=== PATIENT | female | born 1975 | race Caucasian/White ===

== ENCOUNTER 2017-02-20 12:05 | Emergency (ER) | payer MEDICAID ==
[~2017-02-20] VITALS: Ht 170.2 cm; Wt 72.6 kg
[~2017-02-20 12:05] MED LIST: CARI-277 PO; CITA-30 PO; DICY10CA55; LEVE500T22 PO; LORA-653 PO; OXYC10TA44 PO; PERCOT PO; ZOLP-158 PO
[2017-02-20 12:55] VITALS: BP 118/59
== END 2017-02-20 15:56 | disposition left against medical advice (07) ==
LOC: ER 12:05
DX: R10.30 Lower abdominal pain, unspecified (principal); Z53.21 Procedure and treatment not carried out due to patient leaving prior to being seen by health care provider

== ENCOUNTER 2018-09-12 17:09 | Emergency (ER) | payer MEDICAID ==
[~2018-09-12] VITALS: Ht 170.2 cm; Wt 86.2 kg
[2018-09-12 20:51] VITALS: BP 156/98
[2018-09-12] MEDS: METHOCARBAMOL 500 MG TAB PO ONE (22:06)
[2018-09-12] MEDS: ACETAMINOPHEN 325 MG TAB PO ONE (22:06)
== END 2018-09-12 22:47 | disposition home or self-care (01) ==
LOC: ER 17:09
DX: M62.838 Other muscle spasm (principal); M54.2 Cervicalgia; M79.645 Pain in left finger(s); R42 Dizziness and giddiness; I10 Essential (primary) hypertension; F17.210 Nicotine dependence, cigarettes, uncomplicated; Z90.49 Acquired absence of other specified parts of digestive tract; Z98.51 Tubal ligation status; Z88.1 Allergy status to other antibiotic agents; Z88.6 Allergy status to analgesic agent; Z88.8 Allergy status to other drugs, medicaments and biological substances; V43.62XA Car passenger injured in collision with other type car in traffic accident, initial encounter; Y93.89 Activity, other specified; Y92.488 Other paved roadways as the place of occurrence of the external cause; Y99.8 Other external cause status
CPT/HCPCS: 72040; 73140

== ENCOUNTER 2021-06-27 17:41 | Emergency (ER) | payer OTHER, MEDICAID ==
[~2021-06-27 17:41] MED LIST changes: -CITA-30 PO; +CITA20TA9 PO; -LEVE500T22 PO; +LEVE500T32 PO; -LORA-653 PO; +LORA0.5T19 PO; -ZOLP-158 PO; +ZOLP5TAB PO
[2021-06-30] MEDS ORDERED: LORazepam 2MG/ML-1ML VIAL ONE (17:43)
== END 2021-06-27 17:47 | disposition left against medical advice (07) ==
LOC: ER 17:41
DX: F99 Mental disorder, not otherwise specified (principal); Z53.21 Procedure and treatment not carried out due to patient leaving prior to being seen by health care provider

== ENCOUNTER 2021-10-26 16:15 | Emergency (ER) | payer OTHER, MEDICAID ==
[~2021-10-26] VITALS: Ht 170.2 cm; Wt 70.0 kg
[2021-10-26 16:20] VITALS: BP 125/81
== END 2021-10-26 17:52 | disposition left against medical advice (07) ==
LOC: EDBD 16:15 → ER 16:15
DX: R45.851 Suicidal ideations (principal); R44.0 Auditory hallucinations; I10 Essential (primary) hypertension; F32.9 Major depressive disorder, single episode, unspecified; F17.210 Nicotine dependence, cigarettes, uncomplicated; Z90.49 Acquired absence of other specified parts of digestive tract; Z98.51 Tubal ligation status; Z88.6 Allergy status to analgesic agent; Z88.8 Allergy status to other drugs, medicaments and biological substances

== ENCOUNTER 2023-07-30 15:56 | Emergency (ER) | payer MEDICARE, MEDICAID ==
[~2023-07-30] VITALS: Ht 170.2 cm; Wt 80.6 kg
[~2023-07-30 15:56] MED LIST changes: -LEVE500T32 PO; +LEVE500T40 PO; +LORA-1120 PO; -LORA0.5T19 PO
[2023-07-30 16:25] VITALS: BP 120/55
[2023-07-30] MEDS ORDERED: HYDR-4798 PO (16:48)
[2023-07-30 16:56] VITALS: PULSE 96; RESP 20; O2SAT 98
== END 2023-07-30 17:33 | disposition home or self-care (01) ==
LOC: ER 15:56
DX: M54.59 Other low back pain (principal); G89.29 Other chronic pain; M41.9 Scoliosis, unspecified; I10 Essential (primary) hypertension; M10.9 Gout, unspecified; M19.90 Unspecified osteoarthritis, unspecified site; F32.9 Major depressive disorder, single episode, unspecified; F17.210 Nicotine dependence, cigarettes, uncomplicated; Z86.2 Personal history of diseases of the blood and blood-forming organs and certain disorders involving the immune mechanism; Z98.890 Other specified postprocedural states; Z88.8 Allergy status to other drugs, medicaments and biological substances; Z79.899 Other long term (current) drug therapy; Z91.09 Other allergy status, other than to drugs and biological substances

== ENCOUNTER 2023-08-02 14:22 | Emergency (ER) | payer MEDICARE, MEDICAID ==
[~2023-08-02] VITALS: Ht 170.2 cm; Wt 80.3 kg
[~2023-08-02 14:22] MED LIST changes: +HYDR-4798 PO
[2023-08-02 16:16] VITALS: BP 119/78; PULSE 82; RESP 18; TEMP 98.3; O2SAT 97
[2023-08-02] MEDS ORDERED: HYDR-3682 PO (16:34)
== END 2023-08-02 16:35 | disposition home or self-care (01) ==
LOC: ER 14:22
DX: F41.0 Panic disorder [episodic paroxysmal anxiety] (principal); Z76.0 Encounter for issue of repeat prescription; M19.90 Unspecified osteoarthritis, unspecified site; F32.A Depression, unspecified; I10 Essential (primary) hypertension; M10.9 Gout, unspecified; F17.210 Nicotine dependence, cigarettes, uncomplicated; Z98.51 Tubal ligation status; Z90.49 Acquired absence of other specified parts of digestive tract; Z86.2 Personal history of diseases of the blood and blood-forming organs and certain disorders involving the immune mechanism

== ENCOUNTER 2023-08-04 05:42 | Emergency (ER) | payer MEDICARE, MEDICAID ==
[~2023-08-04] VITALS: Ht 170.2 cm; Wt 79.5 kg
[~2023-08-04 05:42] MED LIST changes: +HYDR-3682 PO
[2023-08-04 05:55] VITALS: BP 96/51; PULSE 82; RESP 18; O2SAT 99
[2023-08-04] MEDS ORDERED: PANT40TA2 PO (06:44)
[2023-08-04] MEDS ORDERED: HYDROcodone-ACET 5/325MG TAB PO ONE (06:45)
[2023-08-04] MEDS ORDERED: PANTOPRAZOLE 40 MG TAB PO ONE (06:45)
== END 2023-08-04 07:36 | disposition home or self-care (01) ==
LOC: ER 05:42
DX: R10.13 Epigastric pain (principal); G89.29 Other chronic pain; I10 Essential (primary) hypertension; F17.210 Nicotine dependence, cigarettes, uncomplicated; Z98.51 Tubal ligation status; Z90.49 Acquired absence of other specified parts of digestive tract; Z88.6 Allergy status to analgesic agent; Z88.8 Allergy status to other drugs, medicaments and biological substances

== ENCOUNTER 2023-08-10 21:21 | Emergency (ER) | payer MEDICARE, MEDICAID ==
[~2023-08-10 21:21] MED LIST changes: +PANT40TA2 PO
== END 2023-08-10 22:03 | disposition left against medical advice (07) ==
LOC: ER 21:21
DX: F41.9 Anxiety disorder, unspecified (principal); Z53.21 Procedure and treatment not carried out due to patient leaving prior to being seen by health care provider

== ENCOUNTER 2023-09-15 04:48 | Emergency (ER) | payer MEDICARE, MEDICAID ==
[~2023-09-15] VITALS: Ht 170.2 cm; Wt 77.0 kg
[2023-09-15 05:03] VITALS: BP 153/96; PULSE 107; RESP 18; O2SAT 96
== END 2023-09-15 06:59 | disposition left against medical advice (07) ==
LOC: ER 04:48
DX: F41.9 Anxiety disorder, unspecified (principal); F41.0 Panic disorder [episodic paroxysmal anxiety]; Z53.21 Procedure and treatment not carried out due to patient leaving prior to being seen by health care provider

== ENCOUNTER 2023-11-04 09:58 | Emergency (ER) | payer MEDICARE, MEDICAID ==
[~2023-11-04] VITALS: Ht 170.2 cm; Wt 68.6 kg
[2023-11-04] MEDS: LORazepam 0.5 MG TAB PO ONE (11:41)
[2023-11-04] MEDS ORDERED: LORA-1121 PO ×2 (11:59→12:00)
[2023-11-04 12:02] VITALS: BP 119/52; PULSE 78; RESP 16; TEMP 97.6; O2SAT 98
== END 2023-11-04 12:10 | disposition home or self-care (01) ==
LOC: ER 10:03
DX: F41.1 Generalized anxiety disorder (principal); I10 Essential (primary) hypertension; F17.210 Nicotine dependence, cigarettes, uncomplicated; Z88.6 Allergy status to analgesic agent; Z88.8 Allergy status to other drugs, medicaments and biological substances; Z98.51 Tubal ligation status; Z90.49 Acquired absence of other specified parts of digestive tract
CPT/HCPCS: 93005